=== PATIENT | male | born 1965 | race Caucasian/White ===

== ENCOUNTER 2025-05-16 13:09 | Emergency (ER) | payer MEDICAID ==
[~2025-05-16] VITALS: Ht 172.7 cm; Wt 56.0 kg
[2025-05-16 13:31] LABS: MEAN PLATELET VOLUME 8.1 FL (7.4-10.4); RED CELL DISTRIBUTION WIDTH 14.6 % (11.5-14.5)
[2025-05-16 13:41] LABS: CREATININE 0.86 MG/DL (0.60-1.10); TOTAL CARBON DIOXIDE 25.3 MMOL/L (24-32); eCRCL 71 ML/MIN; eGFR 90 ML/MIN
--- NOTE | 2025-05-16 13:44 | Physician Documentation ---
History of Present Illness ~ Chief Complaint: Wound Stated Complaint: FEET INFECTION Time Seen by MD: 13:21 Primary Medical Doctor: NONE Mode of Arrival: EMS HPI A 60-year-old male presents to the ED with a complaint of foot pain for states he has been ambulating in the "[facility] since March 09 this year". Reports being homeless. States he has not had food in 24 hours.. Other than having foot pain he has no other medical complaints. Day of Onset of Wound: May 16, 2025 Tetanus within 5 years?: No Medication Reconciliation Allergies: Coded Allergies: No Known Allergies (Unverified , 05/16/25) Review of Systems All Other Systems at this time: Reviewed and Negative ROS As stated above in the HPI, otherwise all systems are reviewed and negative. Physical Exam Vital Signs: Source: Oral, Heart Rate: 70, Respiratory Rate: 22, BP: 98/47, Pulse Oximetry: 99, Weight: 56.000 Oxygen Flow Rate: 0 Physical Exam General: Alert, no apparent distress. Chest: No accessory muscle use. Cardiovascular: Regular rate and rhythm, no murmurs. Gastrointestinal: Soft, nontender, nondistended. Bowels sounds present. Extremities: Normal range of motion, no deformity. Notable calluses and cracking on the inferior aspect of both feet. Signs of infection or drainage. No deformity Neurologic: Oriented x4. Psychiatric: Normal mood and affect. Progress Results/Orders Results/Orders Orders - GERMAN NESBITT NP Recheck Vital Signs (05/16/25 14:10) Reassess Pt For Discharge (05/16/25 14:10) Completed Orders - GERMAN NESBITT [employer] HELPER Mineral Oil/Petrolat,White Crm (Eucerin (05/16/25 13:50) Regular Diet (05/16/25 Lunch) Medications Received in ER Medications (Trade) Dose Ordered Sig/Monie Route PRN Reason Start Time Stop Time Status Last Admin Dose Admin (Eucerin Cream) 1 applic NOW ONCE TP 05/16/25 13:50 05/16/25 13:52 DC 05/16/25 14:22 1 APPLIC Vital Signs 05/16/25 05/16/25 05/16/25 05/16/25 13:10 13:13 14:22 15:03 Pulse 70 66 103 Resp 25 22 16 20 B/P (MAP) 98/47 108/60 (76) 108/60 Pulse Ox 99 99 97 O2 Flow Rate 0 0 Laboratory Tests Test 05/16/25 13:21 White Blood Count 11.0 Red Blood Count 4.79 Hemoglobin 14.6 Hematocrit 43.6 Mean Corpuscular Volume 91.1 Mean Corpuscular Hemoglobin 30.6 Mean Corpuscular Hemoglobin Concent 33.6 Red Cell Distribution Width 14.6 H Platelet Count 327 Mean Platelet Volume 8.1 Neutrophils (%) (Auto) 80.8 H Lymphocytes (%) (Auto) 13.5 L Monocytes (%) (Auto) 5.0 Eosinophils (%) (Auto) 0.2 Basophils (%) (Auto) 0.5 Neutrophils # (Auto) 8.9 H Lymphocytes # (Auto) 1.5 Monocytes # (Auto) 0.5 Eosinophils # (Auto) 0.0 Basophils # (Auto) 0.1 CBC Comment Sodium Level 137 Potassium Level 4.3 Chloride Level 99 Carbon Dioxide Level 25.3 Anion Gap 13 Blood Urea Nitrogen 17 Creatinine 0.86 Estimated GFR/1.73 m2 90 BUN/Creatinine Ratio 19.8 Glucose Level 74 Calcium Level 9.1 Albumin 2.8 L Procalcitonin < 0.05 Chemistry Comments Medical Decision Making Findings Patient was provided food drank and a blanket along with medicated ointment for his feet. Did not present with any signs of acute infection. Going to discharge him for outpatient therapy and further evaluation Differential Dx:Considerations: Include: Abscess, Cellulitis, Dressing change, Healing wound, Other Departure Disposition: 01 HOME / SELF CARE / HOMELESS Impression: Primary Impression: Homeless Discharge Instructions: Athlete's Foot, [id number] Referrals: NO PRIMARY CARE PROVIDER (PCP) Signature Scribe Signature: f Attestation: Scribed for German Nesbitt Supervisor [employer] by German Hammer NP . 05/16/25 18:18 GERMAN NESBITT NP May 16, 2025 13:43
[2025-05-16] MEDS: mineral oil/petrolatum, white cream 113gm jar TP ONE (14:22)
[2025-05-16 15:03] VITALS: BP 108/60; PULSE 103; RESP 20; O2SAT 97
== END 2025-05-16 15:20 | disposition home or self-care (01) ==
LOC: ER 13:09
DX: M79.672 Pain in left foot (principal); M79.671 Pain in right foot; Z59.00 Homelessness unspecified
CPT/HCPCS: 36415; 80048; 84145; 85025; 99283